=== PATIENT | female | born 1935 | race Caucasian/White ===

== ENCOUNTER → 2017-04-28 | Outpatient (CLI) | payer MEDICARE ==
--- NOTE | 2017-04-28 20:32 | Diagnostic Imaging Report ---
EXAMINATION: PA and lateral views of the chest. INDICATION: Dyspnea. FINDINGS: The lungs are hyperinflated. There is minimal atelectasis in the lung bases. There is a 6 mm nodule seen along the lateral mid left lung. This is questioned to be a calcified granuloma. The heart size is normal. No effusion or pneumothorax. The mediastinum and suraj appear unremarkable. IMPRESSION: COPD. Indeterminate 6 mm nodule in the lateral mid left lung. Better evaluation with CT scan of the chest is recommended. Report was called and faxed to office of Denita Sorto APRN on 04/29/2017, @ 8:20 AM/ilda. Dictated by: Dictated on workstation # [id number]
[2017-04-29 00:39] LABS: IGE DETAIL <1.5 IU/mL
[2017-04-29 06:59] LABS: INT IGE See Footnote
[2017-04-29 07:08] LABS: IMMUNOGLOBULIN IGG 633 mg/dL (672-1680)
== END ==
LOC: LAB 11:06
PROVIDERS: ATTEND Nurse Practitioner Family
DX: R94.2 Abnormal results of pulmonary function studies (principal)
CPT/HCPCS: 36415; 71020; 82784; 82785

== ENCOUNTER → 2017-05-09 | Outpatient (CLI) | payer MEDICARE ==
[~2017-05-09] MED LIST: RT-ALBUTEROL SULF 2.5 MG/3 ML PRE-MIX VIAL IH ONE
== END ==
LOC: RT 12:34
PROVIDERS: ATTEND Nurse Practitioner Family
DX: R94.2 Abnormal results of pulmonary function studies (principal); R06.00 Dyspnea, unspecified
CPT/HCPCS: 94060; 94726; 94729

== ENCOUNTER → 2017-07-28 | Outpatient (CLI) | payer MEDICARE ==
--- NOTE | 2017-07-28 11:10 | Diagnostic Imaging Report ---
PROCEDURE: CT chest without contrast. TECHNIQUE: Multiple contiguous axial images were obtained through the chest without the use of intravenous contrast. INDICATION: Pulmonary nodule noted on chest x-ray. The study is performed for further evaluation. COMPARISON: Correlation is made with chest radiograph from 04/28/2017. No prior CT chest studies are available for comparison. FINDINGS: No axillary lymphadenopathy is identified. Hilar and mediastinal evaluation is limited without intravenous contrast. There are calcified lymph nodes in the left hilum consistent with prior granulomatous exposure. There are coronary arterial calcifications present. No pericardial or pleural fluid is detected. Patient does have bilateral breast implants. Parenchymal evaluation does show biapical pleural-parenchymal scarring. There is a 5 mm calcified granuloma in the left upper lobe corresponding with the chest x-ray abnormality. There is some scarring or atelectasis in the lingula and right middle lobe. No noncalcified pulmonary nodules or masses are seen. The upper abdomen is unremarkable. Bony evaluation does shows a right convexity thoracic scoliotic curvature. Multilevel spondylosis. No acute feature is identified. IMPRESSION: Calcified granuloma left upper lobe corresponding with the chest radiographic abnormality as well as calcified left hilar lymph nodes consistent with prior granulomatous exposure. There is right middle lobe and lingular scarring or atelectasis. The remainder of the study is unremarkable. Dictated by: Dictated on workstation # [id number]
== END ==
LOC: RAD 10:32
PROVIDERS: ATTEND Nurse Practitioner Family
DX: J84.112 Idiopathic pulmonary fibrosis (principal); R59.0 Localized enlarged lymph nodes; R91.8 Other nonspecific abnormal finding of lung field; Z77.22 Contact with and (suspected) exposure to environmental tobacco smoke (acute) (chronic)
CPT/HCPCS: 71250

== ENCOUNTER → 2018-09-27 | Outpatient (CLI) | payer MEDICARE ==
[~2018-09-27] MED LIST changes: -RT-ALBUTEROL SULF 2.5 MG/3 ML PRE-MIX VIAL IH ONE; +RT-ALBUTEROL SULF 2.5 MG/3 ML PRE-MIX VIAL INH ONE
== END ==
LOC: RT 12:33
PROVIDERS: ATTEND Nurse Practitioner Family
DX: R06.00 Dyspnea, unspecified (principal); G47.30 Sleep apnea, unspecified; Z72.0 Tobacco use
CPT/HCPCS: 94060; 94726; 94729